=== PATIENT | male | born 1990 | race Hispanic/Latino ===

== ENCOUNTER 2019-11-08 00:40 | Emergency (ER) | payer OTHER, SELFPAY ==
[2019-11-08] MEDS ORDERED: DICYCLOMINE HCL 20 MG TAB ONE (01:21)
[2019-11-08] MEDS ORDERED: ONDANSETRON ODT 4 MG TAB ONE (01:21)
== END 2019-11-08 01:29 | disposition home or self-care (01) ==
LOC: EDH 00:40
DX: U07.1 COVID-19 (principal); B34.9 Viral infection, unspecified; R11.2 Nausea with vomiting, unspecified; Z88.0 Allergy status to penicillin; Z72.0 Tobacco use
CPT/HCPCS: 36415; 99283; U0003